=== PATIENT | female | born 1965 | race Caucasian/White ===

== ENCOUNTER 2022-04-30 07:32 | Emergency (ER) | payer MEDICAID ==
[~2022-04-30] VITALS: Ht 170.2 cm; Wt 50.0 kg
[2022-04-30] MEDS ORDERED: AZIT-31 PO (08:35)
[2022-04-30] MEDS ORDERED: BUDE10.22 INH (08:35)
[2022-04-30] MEDS ORDERED: ALBU8HFA PO (08:35)
[2022-04-30 08:42] VITALS: BP 115/52
== END 2022-04-30 08:57 | disposition home or self-care (01) ==
LOC: ER 07:33
DX: J06.9 Acute upper respiratory infection, unspecified (principal); F17.200 Nicotine dependence, unspecified, uncomplicated; Z79.1 Long term (current) use of non-steroidal anti-inflammatories (NSAID); Z79.2 Long term (current) use of antibiotics
CPT/HCPCS: 71045; 99283